=== PATIENT | female | born 1985 | race Caucasian/White ===

== ENCOUNTER 2017-03-14 21:05 | Emergency (ER) | payer BC ==
[~2017-03-14] VITALS: Ht 160 cm; Wt 62.9 kg
[2017-03-14 21:14] VITALS: BP 110/69
[2017-03-14 21:42] LABS: MCH 31.3 PG (29.0-34.0); MCV 92.1 FL (83-99); MEAN PLAT.VOLUME 9.4 uM^3 (9.5-12.4); PLATELET COUNT 253 K/uL (156-360); RBC DIS.WIDTH-CV 11.9 % (11.8-14.6); RBC DIS.WIDTH-SD 40.6 % (39-53); WHITE BLOOD COUNT 9.4 K/uL (4.1-10.2)
== END 2017-03-14 22:53 | disposition left against medical advice (07) ==
LOC: EME 21:05
PROVIDERS: Physician Assistant
DX: O99.89 Other specified diseases and conditions complicating pregnancy, childbirth and the puerperium (principal); Z53.20 Procedure and treatment not carried out because of patient's decision for unspecified reasons
CPT/HCPCS: 81003; 84702; 85027; 99281